=== PATIENT | female | born 1995 | race Caucasian/White ===

== ENCOUNTER 2017-04-17 03:29 | Emergency (ER) | payer MEDICAID ==
[2017-04-17 03:44] VITALS: BP 128/77; PULSE 85; RESP 16; TEMP 98; O2SAT 100
--- NOTE | 2017-04-17 04:11 | ED PDOC ---
HPI: Chest Pain Time Seen by Provider: 04/17/17 04:00 Chief Complaint (Nursing): Chest Pain Chief Complaint (Provider): chest pain History Per: Patient (21 y/o female here with coughing x 2 days associated with asthma exacerbation notes chest pain with coughing. Patient states she has used inhaler today with improvement of symptoms but persistent chest pain with coughing. Did not take any analgesics. Request steroids for improvment of symptoms.) Past Medical History Reviewed: Historical Data, Nursing Documentation, Vital Signs Vital Signs: Last Vital Signs Temp 98.0 F 04/17/17 03:41 Pulse 85 04/17/17 03:41 Resp 16 04/17/17 03:41 BP 128/77 04/17/17 03:41 Pulse Ox 100 04/17/17 04:11 - Medical History PMH: Asthma - Family History Family History: States: No Known Family Hx - Home Medications Home Medications: Ambulatory Orders Medication Instructions Recorded Albuterol 0.5% [Albuterol Sulfate 2.5 mg IH PRN PRN #1 bottle 10/01/14 20 Ml] Nitrofurantoin Macrocrystals 100 mg PO BID #14 tab 10/30/16 [Macrobid] Ondansetron [Zofran Odt] 4 mg PO ASDIR PRN #20 odt 10/30/16 Ibuprofen [Motrin] 600 mg PO Q8 PRN #21 tab 04/17/17 - Allergies Allergies/Adverse Reactions: Allergies Allergy/AdvReac Type Severity Reaction Status Date / Time nut - unspecified Allergy ANAPHYLAXIS Verified 04/17/17 03:44 Review of Systems ROS Statement: Except As Marked, All Systems Reviewed And Found Negative Physical Exam - Reviewed Nursing Documentation Reviewed: Yes Vital Signs Reviewed: Yes - Physical Exam Appears: Positive for: Well, Non-toxic, No Acute Distress Head Exam: Positive for: ATRAUMATIC, NORMAL INSPECTION, NORMOCEPHALIC Skin: Positive for: Normal Color, Warm, DRY Eye Exam: Positive for: EOMI, Normal appearance, PERRL ENT: Positive for: Normal ENT Inspection Neck: Positive for: Normal, Painless ROM Cardiovascular/Chest: Positive for: Regular Rate, Rhythm. Negative for: Chest Non Tender (chest tenderness minimal) Respiratory: Positive for: CNT, Normal Breath Sounds Gastrointestinal/Abdominal: Positive for: Normal Exam, Bowel Sounds, Soft Back: Positive for: Normal Inspection Extremity: Positive for: Normal ROM Neurologic/Psych: Positive for: Alert, Oriented - ECG O2 Sat by Pulse Oximetry: 100 - Progress ED Course And Treament: prednisone 40 mg x 1 dose MOtrin 600mg x 1 dose Disposition - Clinical Impression Clinical Impression: Asthma exacerbation, Chest pain - Patient ED Disposition Is Patient to be Admitted: No - Disposition Referrals: [facility] [place] [Outside] Disposition: Routine/Home Disposition Time: 04:21 Condition: GOOD Prescriptions: Ibuprofen [Motrin] 600 mg PO Q8 PRN #21 tab PRN Reason: Pain, Moderate (4-7) Instructions: Asthma (ED), Chest Wall Pain (ED) Forms: [employer] (Cam[place]onian)
== END 2017-04-17 04:30 | disposition home or self-care (01) ==
LOC: H.ER 03:29
DX: J45.901 Unspecified asthma with (acute) exacerbation (principal); R07.9 Chest pain, unspecified